=== PATIENT | male | born 1985 | race Caucasian/White ===

== ENCOUNTER 2017-11-12 00:19 | Emergency (ER) | payer OTHER ==
[~2017-11-12] VITALS: Ht 177.8 cm; Wt 74.8 kg
[~2017-11-12 00:19] MED LIST: ACHD5005 PO; NAPR-243 PO; SULF1TAB35 PO; TRAM-21 PO
[2017-11-12] MEDS ORDERED: KETOROLAC 60 MG/2 ML VIAL IM ONE (01:15)
[2017-11-12] MEDS ORDERED: AMOXICILLIN 500 MG (POLYMOX) CAP PO STA (02:32)
[2017-11-12] MEDS ORDERED: RX-TRAMADOL 50 MG (ULTRAM) TAB PPK#4 PO STA (02:32)
[2017-11-12] MEDS ORDERED: LIDOCAINE 2% VISCOUS 15 ML UDC PO ONE (03:00)
[2017-11-12] MEDS ORDERED: AMOX500C2 PO (03:05)
[2017-11-12] MEDS ORDERED: RX-AMOXICILLIN 500 MG CAP #3 PPK PO STA (03:06)
--- NOTE | 2017-11-12 03:06 | ED EENT ---
History of Present Illness General Chief Complaint: Dental Problems/Pain Stated Complaint: JAW PAIN Nursing Triage Note: Patient advises he has been experiencing right sided jaw pain for 2-3 days that has become progressively worse. He advises he has seen a dentist in the past, who advised the teeth of concern needed to be pulled. The patient advises he has been unable to make it to have them pulled. Allergies and Home Medications Allergies Coded Allergies: No Known Drug Allergies (Unverified , 11/12/17) Home Medications Hydrocodone/Acetaminophen 1 Each Tablet, 1 EACH PO Q6H PRN for PAIN, #20 Ref 0 Prescribed by: JUANCARLOS MASTERS on 07/24/162042 Naproxen 500 Mg Tablet, 1 EACH PO TID PRN for PAIN, #20 FOR PAIN Prescribed by: LUPE MERINO on 01/16/15 0121 Sulfamethoxazole/Trimethoprim 1 Each Tablet, 1 EACH PO BID, #20 Ref 0 Prescribed by: JUANCARLOS MASTERS on 07/24/162042 Past [id number]-[id number]-Nodgfx Hx Patient Social History Alcohol Use: Denies Use Recreational Drug Use: No Smoking Status: Current Everyday Smoker Type Used: Cigarettes Recent Foreign Travel: No Contact w/Someone Who Travel: No Recent Infectious Disease Expo: No Recent Hopitalizations: No Physical Abuse: No Sexual Abuse: No Immunizations Up To Date Tetanus Booster (TDap): Unknown Seasonal Allergies Seasonal Allergies: No Surgeries History of Surgeries: Yes Surgeries: Adenoidectomy, Tonsillectomy Respiratory History of Respiratory Disorde: No Cardiovascular History of Cardiac Disorders: Yes Cardiac Disorders: Heart Murmur Neurological History of Neurological Disord: No Gastrointestinal History of Gastrointestinal Di: No Musculoskeletal History of Musculoskeletal Dis: No Endocrine History of Endocrine Disorders: No Cancer History of Cancer: No Psychosocial History of Psychiatric Problem: Yes Behavioral Health Disorders: ADD/ADHD Suicide Risk Score: 0 Integumentary History of Skin or Integumenta: No Blood Transfusions History of Blood Disorders: No Adverse Reaction to a Blood Tr: No Family Medical History Significant Family History: No Pertinent Family Hx Physical Exam Vital Signs Vital Sign - Last 12Hours 11/12/17 00:53 Temp 97.8 Pulse 64 Resp 14 B/P (MAP) 157/102 (120) Pulse Ox 98 O2 Delivery Room Air Progress/Results/Core Measures Results/Orders My Orders Orders - VIVEK CANCHOLA MD Ketorolac Injection (Toradol Injection) (11/12/17 01:15) Amoxicillin Capsule (Polymox Capsule) (11/12/17 02:32) Rx-Tramadol Hcl (Rx-Ultram) (11/12/17 02:32) Lidocaine 2% Viscous 15 Ml (Xylocaine Vi (11/12/17 03:00) Medications Given in ED Current Medications Medications Dose Ordered Sig/Ermias Route Start Time Stop Time Status Last Admin Dose Admin Ketorolac Tromethamine 60 mg ONCE ONCE IM 11/12/17 01:15 11/12/17 01:16 DC 11/12/17 01:10 60 MG Lidocaine HCl 5 ml ONCE ONCE PO 11/12/17 03:00 11/12/17 03:01 DC 11/12/17 02:54 5 ML Vital Signs/I&O Vital Sign - Last 12Hours 11/12/17 00:53 Temp 97.8 Pulse 64 Resp 14 B/P (MAP) 157/102 (120) Pulse Ox 98 O2 Delivery Room Air Blood Pressure Mean: 120 Departure Impression Impression: Primary Impression: Dental caries extending into dentine Additional Impression: Pain, dental Disposition: HOME, SELF-CARE Condition: Improved Departure-Patient Inst. Decision time for Depature: 02:30 Referrals: [facility] (PCP/Family) Primary Care Physician Patient Instructions: Dental Pain (DC) Add. Discharge Instructions: You may take ibuprofen up to 600 mg every 6 hours as needed for pain. Add Ultram (tramadol) and/or acetaminophen (Tylenol) for pain not controlled by ibuprofen. You may also use the gauze pads provided. Use them with caution as the anesthetic gauze pads may cause numbness in the mouth and throat. Eat and drink carefully after using them and do not fall sleep with gauze pads in your mouth. Complete the antibiotics as prescribed. Follow-up with a dentist for extractions as soon as possible. All discharge instructions reviewed with patient and/or family. Voiced understanding. Scripts Amoxicillin (Amoxicillin) 500 Mg Capsule 1000 MG PO BID, #40 CAP Prov: VIVEK CANCHOLA MD 11/12/17 VIVEK CANCHOLA MD Nov 12, 2017 03:06
[2017-11-12 03:20] VITALS: BP 125/78
== END 2017-11-12 03:22 | disposition home or self-care (01) ==
LOC: EDUNIT# 00:19 → ER 00:22
DX: K02.9 Dental caries, unspecified (principal); F90.9 Attention-deficit hyperactivity disorder, unspecified type; F17.210 Nicotine dependence, cigarettes, uncomplicated; Z90.89 Acquired absence of other organs
CPT/HCPCS: 99284